=== PATIENT | female | born 1985 | race Caucasian/White ===

== ENCOUNTER 2020-08-30 00:56 | Day surgery (SDC) | payer OTHER, SELFPAY ==
[2020-08-29 10:29] VITALS: BMI 39.8
[2020-08-30] VITALS (8 sets, daily range): BP systolic 122–141; BP diastolic 63–93; PULSE 67–92; RESP 12–20; TEMP 36.8; O2SAT 96–100; BMI 38.5
[2020-08-30] MEDS: ACETAMINOPHEN 500 MG TABLET 1000 MG PO (08:06)
--- NOTE | 2020-08-30 08:22 | P.PNAN_ITS ---
Anes - Initial Pre Proc Eval Procedure: Operation Date: 08/30/20 09:30 Proposed Procedures p Bilateral Laparoscopic Salpingectomy, - Tara Fagan MD s Hysteroscopy, Endometrial Ablation with Joann - Tara Fagan MD Date/Time: 08/30/20 08:22 Surgeon: Tara Fagan MD Pre Op Diagnosis: lesion of endometrium, menorrhagia Patient Data Age: 34 Gender: F Height: 1.6 m Weight: 102.06 kg Allergies Allergy/AdvReac Type Severity Reaction Status Date / Time No Known Allergies Allergy Verified 08/30/20 07:53 Home Medications Medication Instructions Recorded Confirmed Type albuterol sulfate See Rx Instructions .ROUTE 08/29/20 08/29/20 History .COMPLEX PRN cholecalciferol (vitamin D3) 125 mcg PO DAILY 08/29/20 08/30/20 History venlafaxine 37.5 mg PO DAILY 08/29/20 08/29/20 History Patient hx anesthesia problems: none Family hx anesthesia problems: none [facility] Past Medical History Medical History Asthma Obesity Surgical History Surgical History (Updated 08/30/20 @ 08:26 by Desmond Jewell MD) S/P tonsillectomy Social History Social History Smoking status: Never smoker Tobacco type: e-cigarettes/vaping Second hand tobacco smoke exposure: No Additional smoking assessment comments: One hit a week off the vape maybe; very rare Alcohol intake: current Drinks per week: 1 Substance use: never Substance use type: does not use Living arrangements: with family Spiritual care concerns: No Anes - Eval Final PreProcedure Day of Procedure 08/30/20 08:22 Patient weight: morbidly obese Heart: regular rate and rhythm Lungs: clear to auscultation Airway: Mallampati scale class II Neurological: alert and oriented Last oral intake: >/= 8 hours ASA classification: III Emergent: no Anesthetic plan: proceed Anesthesia type and monitoring: general ETT and standard monitoring Informed Consent: The patient's anesthetic plan and its attendant risks and benefits were discussed with the patient/family/POA. Questions were solicited and answers provided to the satisfaction of the patient/family/POA.
[2020-08-30] MEDS: LACTATED RINGERS 1,000 ML 30 ML IV CONT (08:40)
[2020-08-30] MEDS: KETOROLAC 15 MG/ML VIAL (*BKC) IV PUSH (08:42)
--- NOTE | 2020-08-30 08:44 | WPDHPUPDATE1 ---
History and Physical Update Update Date/Time: 08/30/20 08:44 History and Physical has been reviewed, including an updated exam of the patient. There are NO changes in the patient's condition. Risks, benefits, and alternatives have been discussed and questions answered. Patient agrees to proceed with procedure.
--- NOTE | 2020-08-30 10:03 | W.PM.PROC2 ---
Procedure Note - Detailed Date of Procedure 08/30/20 Pre-op Diagnosis lesion of endometrium, menorrhagia Post-op Diagnosis same Procedure Performed Laparoscopic bilateral salpingectomy, endometrial ablation with hysteroscopy Surgeon Tara Fagan MD Anesthesia general Indications Unwanted fertility, severe menorrhagia Findings Normal appearing ovaries, fallopian tubes, uterus. Normal vulva vagina and cervix. Normal endometrium. Description of Procedure The patient dissect the operating room. She has prepped draped in the dorsal lithotomy position after induction of general anesthesia. The 5 mm left upper quadrant incision was made with a scalpel. A 5 mm trocar was inserted into the intra-abdominal cavity under direct visualization the scope. Pneumoperitoneum was achieved. A 5 mm left lower quadrant incision was made in the skin with a scalpel. A 5 mm trocar was inserted the intra-abdominal cavity under direct visualization the scope. A 5 mm infraumbilical incision was made with scalp on a 5 mm trocar was inserted intra-abdominal cavity under direct visualization of the scope. The bilateral fallopian tubes were removed. The mesosalpinx of the fallopian tube was cauterized from the ovary in a stepwise fashion using LigaSure cautery. It was cut and cauterized in stepwise fashion around to the corneal part of the uterus and fallopian tube. The tube was transected there in amputated. This was done with LigaSure cautery. The tube was taken at the left lower quadrant trocar site. The contralateral side was done in identical fashion. The patient tolerated this portion of the procedure well. The incisions were closed subcuticular for Monocryl and with Dermabond. A speculum was placed in the vagina. Cervix grasped with a tenaculum. The cervix was dilated to about 1 cm. The hysteroscope was inserted. The above findings were noted. Measurements were taken of the uterus and cervix. The uterine length was then entered into the hand piece of the Joann device. The device was inserted into the intrauterine cavity. The array of the device was expanded. The balloon cuff was inflated. A good seal was achieved. The energy and safety cycles were initiated and completed. The array was collapsed and the instrument was withdrawn after deflating the balloon cuff. Hysteroscope was reinserted. Above findings were noted. The hysteroscope was removed. The patient tolerated the procedure well. The speculum and tenaculum were removed. She was taken to recovery in stable condition. Sponge lap and needle counts were correct x2. Estimated Blood Loss 15
[2020-08-30] MEDS: fentaNYL CITRATE INJ (*CRX) 100 MCG/2 ML VIAL 25 MCG IV PUSH (10:29)
[2020-08-30] MEDS: oxyCODONE HCL (*CRX) 5 MG TAB IR PO (10:54)
== END 2020-08-30 11:30 | disposition home or self-care (01) ==
PROVIDERS: Visit Provider Obstetrics & Gynecology
PROC: (CPT 49320; principal; 2020-08-30 09:30)
PROC: 0U5B8ZZ Destruction of Endometrium, Via Natural or Artificial Opening Endoscopic (ICD-10-PCS; CPT 58563; 2020-08-30 09:30)
DX: N92.0 Excessive and frequent menstruation with regular cycle (principal); Z30.2 Encounter for sterilization; N85.01 Benign endometrial hyperplasia; J45.909 Unspecified asthma, uncomplicated; Z79.51 Long term (current) use of inhaled steroids; E66.9 Obesity, unspecified; Z68.38 Body mass index [BMI] 38.0-38.9, adult; F17.290 Nicotine dependence, other tobacco product, uncomplicated
CPT/HCPCS: 58563; 58661; 88302; 88305; A9270; J0330; J1100; J1885; J2250; J2405; J2704; J3010; J7120

== ENCOUNTER 2020-09-11 19:40 | Inpatient (IN) | payer OTHER, SELFPAY ==
--- NOTE | ~2020-09-11 | US_ITS ---
EXAMINATION: US pelvic complete EXAM DATE: 09/12/2020 13:29 INDICATION: Endometritis. TECHNIQUE: Pelvic transabdominal sonogram was performed. There are multiple grayscale and Doppler im ages available for interpretation. There is no prior study for comparison. FINDINGS: Uterus measures 8.8 x 4.2 x 5.5 cm, and is morphologically normal. Endometrial stripe tiffany sures 6-7 mm, within normal limits, and without hypervascularity. There is small free pelvic fluid. Right adnexa: The ovary measures 2.9 x 1.4 x 2.9 cm and is morphologically normal. Ovarian vascular f low confirmed. Left adnexa: The ovary measures 3.8 x 1.6 x 2.1 cm and is morphologically normal. Ovarian vascular fl ow confirmed. IMPRESSION: 1. Unremarkable pelvic ultrasound exam. Reviewed, dictated and finalized at location B.
[2020-09-11 19:04] VITALS: BP 130/78; PULSE 89; RESP 18; TEMP 36.3; O2SAT 99; BMI 38.2
--- NOTE | 2020-09-11 19:04 | ADMGEN ---
This patient, Meena Tubbs, was admitted to 3 [facility] Surg Room 319-01. Patient/family oriented to hospital policies and general routines including ID bracelet, bed and alarms, visiting hours, pain management, procedures, bathroom and other care routines, personal items, smoking policy, room service/diet, and visiting hours. Information on how to activate the Rapid Response Team has been discussed. Patient/Family are encouraged to report perceived risks to care and to ask questions if they do not understand what they are told or what they should do.
[2020-09-11 21:44] LABS: Basophils Absolute Auto 0.1 K/mm3 (0.0-0.1); Basophils Percent Auto 0.6 % (0.2-1.2); Eosinophils Absolute Auto 0.6 K/mm3 (0-0.3); Eosinophils Percent Auto 4.6 % (0-4.4); Hematocrit 42.1 % (37.0-47.0); Hemoglobin 13.3 g/dL (12.0-15.0); Immature Granulocyte Absolute 0.05 K/mm3 (0.00-0.031); Immature Granulocyte Percent A 0.4 % (0-0.5); Lymphocytes Absolute Auto 3.71 K/mm3 (0.9-3.2); Lymphocytes Percent Auto 26.7 % (18.3-44.2); Mean Corpuscular HGB Conc 31.6 g/dl (32-36); Mean Corpuscular Hemoglobin 27.3 pg (26-34); Mean Corpuscular Volume 86.3 fl (80-100); Mean Platelet Volume 10.5 fl (7.4-10.4); Monocytes Percent Auto 7.2 % (2.6-8.5); Neutrophils Absolute Auto 8.4 K/mm3 (1.3-6.7); Neutrophils Percent Auto 60.5 % (45.5-73.1); Platelet Count Result 442 k/mm3 (150-375); Red Blood Count 4.88 M/mm3 (4.2-5.4); Red Cell Distribution Width 13.6 % (11.5-14.5); White Blood Count 13.9 K/mm3 (4.5-10.0)
[2020-09-11] MEDS: DOXYCYCLINE HYCLATE 100 MG TABLET PO (21:58)
[2020-09-11 22:00] VITALS: BP 123/80; PULSE 85; RESP 18; TEMP 36.2; O2SAT 98
[2020-09-11 23:42] LABS: Add Urine Microscopic? YES; Appearance Urine Clear (Clear); Bacteria Urine Trace /hpf; Bilirubin Urine Negative (Negative); Blood Urine Negative (Negative); Color Urine Straw (Yellow); Glucose Urine UA Negative (Negative); Ketones Urine Negative (Negative); Leukocyte Esterase Ur 1+ LEU/UL (Negative); Nitrate Urine Negative (Negative); Protein Urine Negative (Negative); RBC Urine 0-2 /hpf (0-2); Squamous Epithelial Cell Urine Few /hpf (Few); Urobilinogen Urine Negative mg/dL (<2.0)
[2020-09-12] MEDS: cefoTEtan DISODIUM INJ 2 GM in DEXTROSE 5% IN WATER 50 ML IVPB ×3 (02:08→21:42)
[2020-09-12] MEDS: LACTATED RINGERS 1,000 ML 125 ML IV CONT ×3 (02:12→19:35)
[2020-09-12 06:00] VITALS: BP 128/68; PULSE 98; RESP 18; TEMP 36; O2SAT 99
--- NOTE | 2020-09-12 08:35 | ADMGEN ---
This patient, Meena Tubbs, was admitted to 3 [facility] Surg Room 319-01. Patient/family oriented to hospital policies and general routines including ID bracelet, bed and alarms, visiting hours, pain management, procedures, bathroom and other care routines, personal items, smoking policy, room service/diet, and visiting hours. Information on how to activate the Rapid Response Team has been discussed. Patient/Family are encouraged to report perceived risks to care and to ask questions if they do not understand what they are told or what they should do. Discussed hospital policy and medications. Multiple attempts by 4 different nurses were made to get in an IV before they were successful. It seemed difficult to advance the IV catheter once flashback was achieved. She had only mild c/o pain, was pleasant and cooperative.
[2020-09-12] MEDS: HYDROcodone/acetaminophen (*CRX) 5-325 MG TABLET 1 TAB PO ×2 (10:45→21:46)
[2020-09-12] MEDS: DOXYCYCLINE HYCLATE 100 MG TABLET PO ×2 (10:45→21:43)
--- NOTE | 2020-09-12 12:09 | PM.IMHP ---
H&P: HPI History of Present Illness Date/Time: 09/12/20 12:09 this patient is a 34-year-old female who presented the office with foul-smelling vaginal discharge. She is about 2 weeks postop from an endometrial ablation. She reports foul-smelling vaginal discharge. She has some pelvic discomfort. She has Appreciated a mildly elevated body temperature. She has not measured a fever per se. she denies any chest pain or shortness of breath. She denies any nausea or vomiting or chills. She denies any dysuria, urgency, frequency. Chief Complaint: Pelvic pain Review of Systems Constitutional: Constitutional: Reports no additional constitutional complaints, Denies fatigue, Denies headache(s), Denies lethargy and Denies weakness Eyes: Eyes: Reports no additional eye complaints, Denies blurry vision and Denies photophobia ENT: Reports as per HPI, Denies headache(s) and Denies neck pain Cardiovascular: Cardiovascular: Denies chest pain, Denies diaphoresis, Denies leg edema, Denies palpitations and Denies dyspnea Respiratory: Respiratory: Denies hemoptysis, Denies dyspnea and Denies wheezing Gastrointestinal: Gastrointestinal: Denies abdominal pain, Denies melena, Denies bloating, Denies hematochezia, Denies nausea and Denies vomiting Genitourinary: Genitourinary: Reports no additional female genitourinary complaints Musculoskeletal: Musculoskeletal: Denies joint swelling, Denies neck pain, Denies numbness and Denies stiffness Neurologic: Denies Abnormal speech present, Denies confusion, Denies headache(s), Denies numbness and Denies weakness Psychiatric: Psychiatric: Denies anxiety, Denies confusion, Denies depression, Denies homicidal ideation and Denies suicidal ideation Endocrine: Endocrine: Denies fatigue and Denies palpitations Allergic/Immunologic: Allergic/Immunologic: Denies wheezing PMF Past Medical History Medical History (Updated 09/12/20 @ 12:12 by Tara Fagan MD) Asthma Obesity Surgical History Surgical History (Updated 08/30/20 @ 08:26 by Desmond Jewell MD) S/P tonsillectomy Social History Social History Smoking status: Light tobacco smoker Tobacco type: e-cigarettes/vaping Second hand tobacco smoke exposure: No Additional smoking assessment comments: very rare Alcohol intake: former Drinks per week: 1 Substance use: never Substance use type: does not use Spiritual care concerns: No Meds Home Medications and Allergies Home Medications Medication Instructions Recorded Confirmed Type albuterol sulfate See Rx Instructions .ROUTE 08/29/20 09/11/20 History .COMPLEX PRN cholecalciferol (vitamin D3) See Rx Instructions .ROUTE .COMPLEX 08/29/20 09/11/20 History venlafaxine 37.5 mg PO DAILY 08/29/20 09/11/20 History Allergies Allergy/AdvReac Type Severity Reaction Status Date / Time No Known Allergies Allergy Verified 09/11/20 19:08 Vital Signs Vital Signs - 24 hr 09/11/20 19:04 09/11/20 22:00 09/12/20 06:00 Temperature 97.3 F L 97.1 F L 96.8 F L Pulse Rate 89 85 98 Respiratory Rate 18 18 18 Blood Pressure 130/78 123/80 128/68 Pulse Oximetry 99 98 99 Exam Const: General: healthy appearing, comfortable and no acute distress; No confusion Orientation/consciousness: No confusion Eyes: Direct Ophthalmoscopy: No photophobia Resp: Auscultation: clear to auscultation bilaterally, no rales, no rhonchi and no wheezes Cardio: Rate: regular rate Heart sounds: no click, no murmurs and no rubs GI: Inspection: non-distended GI Palp: No abdominal tenderness Auscultation: normal bowel sounds : External Female Exam: normal external appearance Speculum Exam - Vagina: normal appearance of the vagina Speculum Exam - Cervix: normal appearance of the cervix Bimanual exam- vagina & uterus: cervical motion tenderness and Uterine tenderness Bimanual Exam- Adnexa, other: normal adnexae Neuro: General
[2020-09-12 12:47] LABS: Hematocrit 40.9 % (37.0-47.0); Hemoglobin 13.2 g/dL (12.0-15.0); Mean Corpuscular HGB Conc 32.3 g/dl (32-36); Mean Corpuscular Hemoglobin 27.4 pg (26-34); Mean Platelet Volume 10.3 fl (7.4-10.4); Platelet Count Result 454 k/mm3 (150-375); Red Blood Count 4.81 M/mm3 (4.2-5.4); Red Cell Distribution Width 13.5 % (11.5-14.5); White Blood Count 12.9 K/mm3 (4.5-10.0)
[2020-09-12 14:00] VITALS: BP 132/76; PULSE 86; RESP 16; TEMP 36; O2SAT 98
[2020-09-12 22:00] VITALS: BP 124/77; PULSE 86; RESP 18; TEMP 36.2; O2SAT 98
[2020-09-13] MEDS: LACTATED RINGERS 1,000 ML 125 ML IV CONT (03:31)
[2020-09-13 06:00] VITALS: BP 120/59; PULSE 79; RESP 18; TEMP 35.8; O2SAT 97
[2020-09-13 06:22] LABS: Hematocrit 37.8 % (37.0-47.0); Hemoglobin 12.1 g/dL (12.0-15.0); Mean Corpuscular Hemoglobin 27.1 pg (26-34); Mean Corpuscular Volume 84.6 fl (80-100); Mean Platelet Volume 10.4 fl (7.4-10.4); Platelet Count Result 370 k/mm3 (150-375); Red Blood Count 4.47 M/mm3 (4.2-5.4); Red Cell Distribution Width 13.4 % (11.5-14.5); White Blood Count 11.2 K/mm3 (4.5-10.0)
[2020-09-13] MEDS: cefoTEtan DISODIUM INJ 2 GM in DEXTROSE 5% IN WATER 50 ML IVPB (08:14)
[2020-09-13] MEDS: DOXYCYCLINE HYCLATE 100 MG TABLET PO (08:15)
--- NOTE | 2020-09-13 12:37 | PM.DS ---
DS: Admitting Diagnosis Admitting Diagnosis Uterine infection DS: Discharge Diagnosis Discharge Diagnosis (1) Uterine infection: Code(s): N71.9 - Inflammatory disease of uterus, unspecified Status: Acute DS: Summary Hospital Course Reason for hospitalization: post endometrial ablation uterine infection Hospital Course: this patient is a 34-year-old female who is about 2 weeks post endometrial ablation. She had some pelvic discomfort and foul-smelling vaginal discharge. Examination revealed some purulent fluid egressing from the cervix. She was admitted the hospital for IV antibiotics. She has been here about 38 hours. Throughout that period time she was afebrile. She did have elevated white count and pelvic pain. Her symptoms improved in the time she has been here. She got 3 doses IV antibiotics. She was tolerating p.o. and ambulating throughout. Status at Discharge Functional status at discharge: independent ambulation Time Spent with Patient Time attestation: Total time spent providing and/or coordinating discharge services: Time spent: Greater than 30 minutes Exam Const: General: healthy appearing, comfortable and no acute distress Resp: Auscultation: clear to auscultation bilaterally, no rales, no rhonchi and no wheezes Cardio: Rate: regular rate Heart sounds: no click, no murmurs and no rubs GI: Inspection: non-distended Auscultation: normal bowel sounds Extrem: General: normal to inspection, no pedal edema and no calf tenderness DS: Data Data Completed and Pending Labs on day of discharge: Labs from last 24 hours 09/13/20 09/12/20 06:03 12:31 WBC 11.2 H 12.9 H RBC 4.47 4.81 Hgb 12.1 13.2 Hct 37.8 40.9 MCV 84.6 85.0 MCH 27.1 27.4 MCHC 32.0 32.3 RDW 13.4 13.5 Plt Count 370 454 H MPV 10.4 10.3 Discharge Plan Discharge Consulting providers: Beverly,Colby Claire Discharging Clinician: Tara Fagan Patient Disposition: Home, Self-Care Activity: pelvic rest Diet: regular Patient Instructions: Antibiotic Form, Endometriosis (DC), How to Stop Smoking (DC) Stand Alone Forms: General Discharge Information Follow-up/Referrals: Tara Fagan MD [Physician] - Discharge Medications: New doxycycline hyclate 100 mg Tablet 100 mg PO Q12HR Qty: 20 RF: 0 metronidazole 500 mg tablet 500 mg PO Q12H Qty: 20 RF: 0 metronidazole 500 mg tablet 500 mg PO Q12H Qty: 20 RF: 0 Continued venlafaxine 37.5 mg capsule,extended release 24hr 37.5 mg PO DAILY RF: 0 albuterol sulfate 90 mcg/actuation HFA aerosol inhaler See Rx Instructions .ROUTE .COMPLEX PRN (Reason: PRN) RF: 0 cholecalciferol (vitamin D3) 125 mcg (5,000 unit) Tablet See Rx Instructions .ROUTE .COMPLEX RF: 0 Date of admission: 09/11/20 19:40 Primary Care Provider: PHYSICIAN NOT ON STAFF,NONSTAFF Admitting Provider: Tara Fagan Attending physician on admission: Tara Fagan Condition: Stable
--- NOTE | 2020-09-13 12:45 | P.PNOB_ITS ---
OVERHEAD [employer]ER - A/P Assessment and plan (1) Uterine infection: Code(s): N71.9 - Inflammatory disease of uterus, unspecified Status: Acute Assessment and Plan: This patient is a 34-year-old female who had a postoperative uterine infection. She was treated with IV antibiotics. Her symptoms and labs have improved. She will be sent home today. She will continue oral antibiotics for 10 more days. 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 Her foul-smelling vaginal discharge has resolved. She feels well. Exam Const: General: healthy appearing, comfortable and no acute distress Resp: Auscultation: clear to auscultation bilaterally, no rales, no rhonchi and no wheezes Cardio: Rate: regular rate Heart sounds: no click, no murmurs and no rubs GI: Inspection: non-distended Auscultation: normal bowel sounds Extrem: General: normal to inspection, no pedal edema and no calf tenderness OVERHEAD CLE[employer]ER - PN: Obj Data Vital Signs Vital Signs: Vital Signs - 24 hr 09/12/20 14:00 09/12/20 22:00 09/13/20 06:00 Temperature 96.8 F L 97.1 F L 96.4 F L Pulse Rate 86 86 79 Respiratory Rate 16 18 18 Blood Pressure 132/76 124/77 120/59 L Pulse Oximetry 98 98 97 Intake/Output Intake/Output: Intake & Output 09/10/20 09/11/20 09/12/20 09/13/20 23:59 23:59 23:59 23:59 Intake Total 5190 1790 Output Total 3700 Balance 1490 1790 Meds/Results Medications: Active Medications Generic Name Dose Route Start Last Admin Trade Name Freq PRN Reason Stop Dose Admin Hydrocodone Bitart/Acetaminophen 1 tab 09/11/20 20:02 09/12/20 21:46 Hydrocodone/Acetaminophen (*Crx) 5-325 Mg Tablet PO 1 tab Q4H PRN Administration Pain Rated 4-6 Doxycycline Hyclate 100 mg 09/11/20 21:00 09/13/20 08:15 Doxycycline Hyclate 100 Mg Tablet PO 100 mg Q12HR MUMTAZ Administration Lactated Ringer's 1,000 mls @ 125 mls/hr 09/11/20 20:05 09/13/20 03:31 Lr - Lactated Ringers Iv IV CONT 125 mls/hr .Q8H MUMTAZ Administration Cefotetan Disodium 2 gm/ 50 mls @ 100 mls/hr 09/11/20 21:00 09/13/20 08:44 Dextrose IVPB Infused Q12HR MUMTAZ Infusion Radiology Results: ITS Impressions Pelvis Ultrasound 09/12/20 14:02 IMPRESSION: 1. Unremarkable pelvic ultrasound exam. Labs CBC & Chem 7: 09/13/20 06:03 Labs: Laboratory Results - last 24 hr 09/12/20 09/13/20 12:31 06:03 WBC 12.9 H 11.2 H RBC 4.81 4.47 Hgb 13.2 12.1 Hct 40.9 37.8 MCV 85.0 84.6 MCH 27.4 27.1 MCHC 32.3 32.0 RDW 13.5 13.4 Plt Count 454 H 370 MPV 10.3 10.4
== END 2020-09-13 13:35 | disposition home or self-care (01) | DRG 700 ==
PROVIDERS: Admitting Provider Obstetrics & Gynecology; PCP Family Medicine; Visit Provider Obstetrics & Gynecology
DX: N99.89 Other postprocedural complications and disorders of genitourinary system (principal); N71.9 Inflammatory disease of uterus, unspecified; J45.909 Unspecified asthma, uncomplicated; E66.9 Obesity, unspecified; Z68.38 Body mass index [BMI] 38.0-38.9, adult; F17.290 Nicotine dependence, other tobacco product, uncomplicated; Y84.8 Other medical procedures as the cause of abnormal reaction of the patient, or of later complication, without mention of misadventure at the time of the procedure; Y92.9 Unspecified place or not applicable
CPT/HCPCS: 36415; 76856; 81001; 85025; 85027; A9270; J7120